=== PATIENT | male | born 1955 | race Two or more races ===

== ENCOUNTER 2016-12-24 16:41 | Inpatient (IN) | payer MEDICARE, OTHER ==
[~2016-12-24] VITALS: Ht 172.7 cm; Wt 100.4 kg
--- NOTE | 2016-12-24 16:45 | NUR ---
BIB PRIVATE EMT FROM [facility],WEAKNESS A,D FAILURE TO THRIVE, NAD NOTED, VSS, PUT ON HOSPITAL GOWN AND MONITOR. WAITING FOR MD ZEPEDA.
[2016-12-24] MEDS ORDERED: IV NS 0.9% 1,000 ML BAG IV ONE (17:30)
[2016-12-24 17:44] LABS: BASOPHILS # (AUTO) 0.1 /CMM (0.0-0.2); BASOPHILS % (AUTO) 0.5 % (0.0-2.0); EOSINOPHILS # (AUTO) 0.6 /CMM (0.0-0.7); EOSINOPHILS % (AUTO) 5.5 % (0.0-6.0); HEMATOCRIT 52 % (39-51); HEMOGLOBIN 17.2 g/dL (13.5-17.5); LYMPHOCYTES # (AUTO) 3.7 /CMM (0.8-4.8); LYMPHOCYTES % (AUTO) 35.5 % (20.0-44.0); MEAN CORPUSCULAR HEMOGLOBIN 28 PG (26.0-33.0); MEAN CORPUSCULAR HGB CONC 33 g/dl (31.0-36.0); MEAN CORPUSCULAR VOLUME 86 fL (80-96); MONOCYTES # (AUTO) 0.8 /CMM (0.1-1.30); NEUTROPHILS # (AUTO) 5.2 /CMM (1.8-8.9); NEUTROPHILS % (AUTO) 50.5 % (43.0-81.0); PLATELET COUNT (AUTO) 186 /CMM (150-450); RED BLOOD CELL COUNT(AUTO) 6.04 MIL/uL (4.5-6.0); WHITE BLOOD COUNT (AUTO) 10.3 K/uL (4.3-11.0)
[2016-12-24] MEDS ORDERED: hydrALAZINE HCL IV 20 MG VIAL ONE (17:48)
[2016-12-24 17:57] LABS: INR 0.91 (0.87-1.13); PROTHROMBIN TIME 9.5 SECS (9.5-12.7)
[2016-12-24 17:59] LABS: CALCIUM, SERUM 8.8 mg/dL (8.5-10.1); CARBON DIOXIDE 25 mmol/L (21-32); CHLORIDE 107 mmol/L (98-107); CREATININE 1.4 mg/dL (0.6-1.3); GLUCOSE 90 mg/dL (74-106); POTASSIUM 4.5 mmol/L (3.5-5.1); SODIUM SERUM 142 mmol/L (136-145); UREA NITROGEN, BLOOD 25 mg/dL (7-18)
[2016-12-24] MEDS ORDERED: hydrALAZINE HCL IV 20 MG VIAL IV ONE (18:00)
[2016-12-24 18:03] LABS: TROPONIN I < 0.017 ng/mL (0.00-0.056)
[2016-12-24 18:05] LABS: ALANINE AMINOTRANSFERASE 18 U/L (12-78); ALBUMIN 3.5 g/dL (3.4-5.0); ALKALINE PHOSPHATASE 97 U/L (46-116); ASPARTATE AMINOTRANSFERASE 23 U/L (15-37); BILIRUBIN,DIRECT 0.1 mg/dL (0.0-0.2); BILIRUBIN,TOTAL 0.6 mg/dL (0.2-1.0); TOTAL PROTEIN, SERUM 8.2 g/dL (6.4-8.2)
[2016-12-24] MEDS ORDERED: ACET-73 PO (18:29)
--- NOTE | 2016-12-24 19:22 | NUR ---
Patient is resting comfortably in bed with eyes closed. Easily aroused. VSS
[2016-12-24] MEDS ORDERED: IV NS 0.9% 1,000 ML IV PRN (19:41)
[2016-12-24] MEDS ORDERED: MAGNESIUM HYDROXIDE 30 ML UDC PO PRN (20:00)
[2016-12-24] MEDS ORDERED: Z GUARD REMEDY 2 OZ OINT TP PRN (20:00)
[2016-12-24] MEDS ORDERED: MAG HYDROX/AL HYDROX/SIMETH 30 ML UDC PO PRN (20:00)
[2016-12-24] MEDS ORDERED: HYDROCODONE/APAP 10/325MG 1 EA TABLET PO PRN (20:00)
[2016-12-24] MEDS ORDERED: ZOLPIDEM TARTRATE 5 MG TABLET PO PRN (20:00)
[2016-12-24] MEDS ORDERED: ONDANSETRON HCL/PF 4 MG/2 ML VIAL IVP PRN (20:00)
[2016-12-24] MEDS ORDERED: HYDROCODONE/APAP 5/325MG 1 EACH TABLET PO PRN (20:00)
[2016-12-24] MEDS ORDERED: ACETAMINOPHEN 325 MG TABLET PO PRN (20:00)
--- NOTE | 2016-12-24 20:10 | NUR ---
REPORT GIVEN TO KIMBERLY
[2016-12-24 20:35] VITALS: BP 154/110
--- NOTE | 2016-12-24 20:35 | NUR ---
MS RN OPENING NOTES: RECEIVED PT FROM ED. PT IS A/OX2-3. PT HAS A BIT OF A DELAY IN HIS SPEECH. PT HAS IV ON R FOREARM AND IS PATENT AND INTACT. CALL LIGHT WITHIN PT'S REACH. PT KEPT CLEAN, DRY, AND COMFORTABLE. BED KEPT IN LOW, LOCKED POSITION, AND SIDE RAILS X 2 UP. NO SOB NOTED. NO S/S OF DISTRESS NOTED AT THIS TIME. PT DENIES ANY PAIN. WILL CONTINUE TO MONITOR PT.
[2016-12-24 21:00] VITALS: BP 149/94
[2016-12-24] MEDS: ENOXAPARIN SODIUM 40 MG/0.4 ML DISP.SYRIN SQ SCH (21:00)
--- NOTE | 2016-12-24 21:20 | NUR ---
MS RN NOTES: SPOKE TO DR. CORCORAN AND INFORMED HIM ABOUT PT'S BP FOR 154/110 HR 106. GOT VERBAL ORDER FOR CLONIDINE 0.1MG PO Q6PRN FOR SBP>160 ; WILL CONTINUE TO MONITOR BP. ALSO INFORMED DOCTOR THAT PT IS REFUSING LOVENOX AFTER RISKS/BENEFITS HAVE BEEN EXPLAINED.
--- NOTE | 2016-12-24 21:25 | NUR ---
MS RN NOTES: PT IS REFUSING LOVENOX AFTER RISKS/BENEFITS HAVE BEEN EXPLAINED X3. PT STILL REFUSES. DR. CORCORAN AWARE. WILL CONTINUE TO MONITOR PT.
[2016-12-24 21:30] VITALS: BP 149/98
[2016-12-24] MEDS ORDERED: CLONIDINE HCL 0.1 MG TABLET PO PRN (21:30)
--- NOTE | 2016-12-24 23:28 | NUR ---
MS RN NOTES: DR. CORCORAN AT BEDSIDE. DR. CORCORAN MADE AWARE THAT PT WISHES TO BE DNR/DNI. DILMA GUY, IS ANOTHER WITNESS.
--- NOTE | 2016-12-25 02:03 | NUR ---
MS RN NOTES: PT WANTED TO BE DISCONNECTED FROM IV FLUIDS. PT IS REFUSING TO BE CONNECTED AT THIS TIME. WILL TRY TO CONNECT HIM BACK AT ANOTHER TIME.
[2016-12-25 06:27] LABS: BASOPHILS # (AUTO) 0.1 /CMM (0.0-0.2); BASOPHILS % (AUTO) 1.1 % (0.0-2.0); EOSINOPHILS # (AUTO) 0.2 /CMM (0.0-0.7); EOSINOPHILS % (AUTO) 1.6 % (0.0-6.0); HEMATOCRIT 50 % (39-51); HEMOGLOBIN 16.6 g/dL (13.5-17.5); LYMPHOCYTES # (AUTO) 3.1 /CMM (0.8-4.8); LYMPHOCYTES % (AUTO) 26.2 % (20.0-44.0); MEAN CORPUSCULAR HEMOGLOBIN 29 PG (26.0-33.0); MEAN CORPUSCULAR HGB CONC 33 g/dl (31.0-36.0); MEAN CORPUSCULAR VOLUME 87 fL (80-96); MONOCYTES # (AUTO) 0.6 /CMM (0.1-1.30); MONOCYTES % (AUTO) 5.2 % (2.0-12.0); NEUTROPHILS # (AUTO) 7.8 /CMM (1.8-8.9); NEUTROPHILS % (AUTO) 65.9 % (43.0-81.0); PLATELET COUNT (AUTO) 187 /CMM (150-450); RDW COEFFICIENT OF VARIATION 14.4 (11.5-15.0); RED BLOOD CELL COUNT(AUTO) 5.83 MIL/uL (4.5-6.0); WHITE BLOOD COUNT (AUTO) 11.8 K/uL (4.3-11.0)
[2016-12-25 06:48] LABS: CALCIUM, SERUM 8.4 mg/dL (8.5-10.1); CREATININE 1.2 mg/dL (0.6-1.3); MAGNESIUM 1.8 mg/dL (1.8-2.4); PHOSPHORUS 3.2 mg/dL (2.5-4.9)
--- NOTE | 2016-12-25 06:57 | NUR ---
MS RN CLOSING NOTES: ALL NEEDS WERE ATTENDED AND ANTICIPATED FOR. PT IS RESTING IN BED COMFORTABLY. PT IS A/OX2-3. PT HAS IV ON R FOREARM AND IS PATENT AND INTACT AND IS BEING INFUSED WITH NS AT 100ML/HR. CALL LIGHT WITHIN PT'S REACH. PT KEPT CLEAN, DRY, AND COMFORTABLE. BED KEPT IN LOW, LOCKED POSITION, AND SIDE RAILS X 2 UP. NO SOB NOTED. NO S/S OF DISTRESS NOTED AT THIS TIME. PT DENIES ANY PAIN. WILL ENDORSE TO AM NURSE FOR OSCAR.
[2016-12-25] MEDS ORDERED: ACETAMINOPHEN ES 500 MG TABLET PO PRN (07:30)
--- NOTE | 2016-12-25 07:56 | NUR ---
MS/RN OPENING NOTE PATIENT RECEIVED IN BED IN STABLE CONDITION. A/O X 2-3. DELAYED RESPONSE TO QUESTIONS. NO SIGNS OF ACUTE DISTRESS. NO COMPLAIN OF PAIN OR DISCOMFORT. ALL NEEDS ATTENDED TO. CALL LIGHT WITHIN REACH. WILL CONTINUE TO MONITOR TO ENSURE SAFETY.
[2016-12-25 08:00] VITALS: BP 156/120
[2016-12-25] MEDS: PANTOPRAZOLE 40 MG TABLET.DR PO SCH (08:37)
[2016-12-25 16:00] VITALS: BP 156/107
--- NOTE | 2016-12-25 16:08 | NUR ---
MS/RN SPOKE WITH JUSTINA Archibald WAREHOUSE TEAM MEMBER SPOKE WITH JUSTINA WHITING AND MADE AWARE REGARDING PATIENT'S REFUSAL OF IV FLUIDS, PER PATIENT, "I WILL DRINK MORE WATER BY MOUTH" JUSTINA WHITING AWARE WITH ORDERS TO CONTINUE OFFERING IV FLUIDS SECONDARY TO PATIENT NEEDS IT FOR HYDRATION.
--- NOTE | 2016-12-25 18:56 | NUR ---
MS/RN CLOSING NOTE PATIENT IN BED IN STABLE CONDITION. A/O X 2-3. DELAYED RESPONSE. NO SIGNS OF ACUTE DISTRESS. NO COMPLAIN OF PAIN OR DISCOMFORT. IV SITE INTACT. REFUSING IV HYDRATION, OFFERED X 3 WITH RISK/ BENEFITS EXPLAINED CONTINUED TO REFUSE. WILL CONTINUE TO OFFER. ALL NEEDS ATTENDED TO. CALL LIGHT WITHIN REACH. WILL ENDORSE TO NEXT SHIFT FOR CONTINUITY OF CARE.
[2016-12-25 20:00] VITALS: BP 164/114
--- NOTE | 2016-12-25 20:00 | NUR ---
MS RN OPENING NOTES RECEIVED PATIENT LAYING IN BED IN SEMI NIELSON POSITION. A & O X 2-3, DELAYED RESPONSE. NO C/O PAIN, NO SOB, NO ACUTE DISTRESS NOTED. ABLE TO MAKE NEEDS KNOWN. IV ACCESS TO RFA, NOTED TO BE INFILTRATED BUT PATIENT REFUSED TO CHANGE THE IV SITE. ALSO REFUSING IV HYDRATION. RISKS & BENEFITS WERE EXPLAINED BUT CONTINUED TO REFUSE. ENCOURAGED TO DRINK FLUIDS TOLERATED, PATIENT VERBALIZED UNDERSTANDING. BED IN LOW LOCKED POSITION. CALL LIGHT WITHIN REACH. OBSERVING CLOSELY.
[2016-12-25] MEDS: ENOXAPARIN SODIUM 40 MG/0.4 ML DISP.SYRIN SQ SCH (21:00)
--- NOTE | 2016-12-25 21:18 | NUR ---
MS RN NOTES PATIENT REFUSED LOVENOX INJECTION, RISKS & BENEFITS WERE EXPLAINED, VERBALIZED UNDERSTANDING BUT STILL REFUSED THE LOVENOX.
[2016-12-25 22:00] VITALS: BP 150/98
[2016-12-25 23:49] VITALS: BP 159/104
--- NOTE | 2016-12-25 23:50 | NUR ---
RN NOTES: RECHECK PT'S VS, REVEAL 159/104 HR 70 RR 20 98.3 PT DENIES ANY PAIN OR DISCOMFORT, PT REFUSING ANY BP MEDICATION, WILL RELAY TO
--- NOTE | 2016-12-25 23:52 | NUR ---
RN NOTES: POULTRY HATCHERY LABORERTAMARA LANDIS TALKED TO THE PT, PER PT HE DOESNT WANT TO TAKE ANY BP MEDS AT THIS TIME HE BELIEVE HIS BP WILL GO BACK TO NORMAL IN NO TIME, AND TO RECHECK AGAIN BP AT 0400AM, PT STATED IF STILL HIGH, THEN HE WILL AGREE TO TAKE THE MEDICINE,
--- NOTE | 2016-12-25 23:55 | NUR ---
RN NOTES: MD HYDROPULPER IN THE UNIT, DR CORCORAN, RELAYED ABOUT PT BP AND BEING NON COMPLIANT, ALSO RELAYED THAT PER PT HE DOESNT WANT TO TAKE ANY MEDICATION AT THIS TIME, HE BELIEVE IT WILL GO BACK TO NORMAL IN NO TIME, AND THAT TO RECHECK AGAIN BP AT 0400AM, IF IT STILL HIGH THEN HE WILL AGREE TO TAKE THE MEDICINE, EDUCATION PROVIDED TO THE PT, CHILD DEVELOPMENT SPECIALISTTAMARA LANDIS AWARE, NO NEW ORDERS FROM MD AT THIS TIME, WILL CONTINUE MONITORING PT
--- NOTE | 2016-12-26 07:10 | NUR ---
RN OPENING NOTES RECEIVED PATIENT IN BED AWAKE, A/O X 3, ABLE TO COMMUNICATE NEEDS. NO ACUTE DISTRESS, NO SOB NOTED. DENIES PAIN AND DISCOMFORT AT THIS TIME. ASKED THE PATIENT THAT IV SITE NEEDS TO BE DISCONTINUED DUE TO INFILTRATION, PATIENT AGREED TO D/C IV SITE, NIGHT RN D/C IV SITE, NO COMPLICATIONS NOTED. BED IN LOW POSITION, LOCKED, SIDERAILS UP X2, CALL LIGHT IN REACH, WILL CONTINUE TO MONITOR ACCORDINGLY.
[2016-12-26] MEDS: PANTOPRAZOLE 40 MG TABLET.DR PO SCH (07:30)
--- NOTE | 2016-12-26 07:30 | NUR ---
RN NOTES PATIENT REFUSED TO REINSERT IV, EDUCATE/TEACHING WAS DONE BUT STILL REFUSED. WILL NOTIFY
[2016-12-26 08:00] VITALS: BP 152/96
--- NOTE | 2016-12-26 09:00 | NUR ---
RN NOTES PATIENT REFUSED AM MEDICATIONS, TEACHING WAS DONE BUT STILL REFUSED TO TAKE IT. WILL CONTINUE TO MONITOR ACCORDINGLY
--- NOTE | 2016-12-26 10:21 | NUR ---
WOUND CARE CONSULT: PT PRESENTS WITH INCONTINENCE AND SACRAL SCARRING. PT SCRATCHES HIMSELF AT TIMES. ALL SKIN PROTECTION MEASURES IN PLACE. PT ABLE TO ASSIST WITH TURNING AND REPOSITIONING IN BED. WILL SEE LISA. DISCUSSED SKIN PROTECTION WITH NURSING STAFF. WILL SEE LISA. IN AGREEMENT WITH PLAN OF CARE. Addendum: 12/26/16 at 1022 by DREW LLANOS WNDNU Amended: Links added.
[2016-12-26 10:35] LABS: CALCIUM, SERUM 8.7 mg/dL (8.5-10.1); CREATININE 1.5 mg/dL (0.6-1.3); POTASSIUM 4.5 mmol/L (3.5-5.1)
[2016-12-26 11:10] LABS: RED BLOOD CELL COUNT(AUTO) 5.64 MIL/uL (4.5-6.0); WHITE BLOOD COUNT (AUTO) 10.6 K/uL (4.3-11.0)
[2016-12-26 11:11] LABS: HEMATOCRIT 49 % (39-51); HEMOGLOBIN 16.3 g/dL (13.5-17.5); LYMPHOCYTES % (AUTO) 33.9 % (20.0-44.0); MEAN CORPUSCULAR HEMOGLOBIN 29 PG (26.0-33.0); MEAN CORPUSCULAR HGB CONC 33 g/dl (31.0-36.0); MEAN CORPUSCULAR VOLUME 87 fL (80-96); MONOCYTES % (AUTO) 9.7 % (2.0-12.0); NEUTROPHILS % (AUTO) 51.2 % (43.0-81.0); PLATELET COUNT (AUTO) 185 /CMM (150-450); RDW COEFFICIENT OF VARIATION 14.3 (11.5-15.0)
[2016-12-26 11:12] LABS: BASOPHILS % (AUTO) 0.3 % (0.0-2.0); EOSINOPHILS % (AUTO) 4.9 % (0.0-6.0)
[2016-12-26 16:00] VITALS: BP 159/98
--- NOTE | 2016-12-26 16:15 | NUR ---
RN NOTES PATIENT NK=[id number], REFUSED BP MEDICATIONS. PATIENT STATED "I DONT WANT IT! ITS NORMAL FOR ME!". EDUCATE/TEACHING ABOUT BP MEDS WAS DONE BUT PATIENT STILL REFUSED. WILL CONTINUE TO MONITOR ACCORDINGLY.
--- NOTE | 2016-12-26 17:00 | NUR ---
RN NOTES JUSTINA DE LEON,SCHOOL LIBRARY MEDIA PROGRAM DIRECTOR ON BEDSIDE, NOTIFIED ABOUT PATIENT BEEN REFUSING TO HAVE IV INSERTION. SCHOOL LIBRARY MEDIA PROGRAM DIRECTOR ALSO NOTIFIED ABOUT PATIENT REFUSING MEDICATIONS. WILL CONTINUE TO MONITOR ACCORDINGLY.
--- NOTE | 2016-12-26 19:29 | NUR ---
RN CLOSING NOTES NO CHANGE OF CONDITION. NO ACUTE DISTRESS, NO SOB NOTED. ALL NEEDS ATTENDED AND PROVIDED. KEPT PATIENT SAFE AND COMFORTABLE. BED IN LOW POSITION, LOCKED, SIDERAILS UP X2. CALL LIGHT WITHIN REACH. ENDORSED TO NIGHT RN FOR OSCAR.
[2016-12-26 20:00] VITALS: BP 167/112
--- NOTE | 2016-12-26 20:00 | NUR ---
MS RN OPENING NOTES RECEIVED PATIENT RESTING IN BED, AWAKE. A & O X 2-3, ABLE TO VERBALIZE HIS NEEDS. NO C/O PAIN, NO SOB, NO CHANGE OF CONDITION NOTED. HAS NO IV ACCESS DUE TO PT'S REFUSAL FOR IV HYDRATION. MD AWARE. ENCOURAGED TO DRINK TOLERATED. ABLE TO TURN & REPOSITION IN BED INDEPENDENTLY. BED IN LOW LOCKED POSITION. CALL LIGHT WITHIN REACH. WILL CONTINUE TO MONITOR.
[2016-12-26 21:00] VITALS: BP 152/99
[2016-12-26] MEDS: ENOXAPARIN SODIUM 40 MG/0.4 ML DISP.SYRIN SQ SCH (21:00)
--- NOTE | 2016-12-26 21:40 | NUR ---
REFUSED LOVENOX PATIENT REFUSED LOVENOX INJECTION ORDERED BY . PT STATES, ' I DONT WANT IT '. RISKS & BENEFITS EXPLAINED BUT CONTINUED TO REFUSE. AWARE.
--- NOTE | 2016-12-27 03:00 | NUR ---
MS RN NOTES PATIENT SLEEPING COMFORTABLY AT THIS TIME. NO OSCAR NOTED. PATIENT CHECK ROUNDING BEING DONE PER FACILITY PROTOCOL.
--- NOTE | 2016-12-27 05:43 | NUR ---
refusal for blood draw: agricultural labor camp manager came stated pt refusing blood draw, talked to the pt, education provided, but pt still refused
--- NOTE | 2016-12-27 06:27 | NUR ---
MS RN CLOSING NOTES PATIENT SLEPT WELL AT NIGHT. A & O X 2-3, DELAYED RESPONSE. NO C/O PAIN, NO SOB, NO ACUTE DISTRESS OR DISCOMFORT NOTED. REFUSES TO HAV IV ACCESS AT ALL, MD AWARE. TAKES PO INTAKE & FLUIDS TOLERATED. BED IN LOW LOCKED POSITION. ALL NEEDS ATTENDED TO & MET. ON CALORIE COUNT DIET. CALL LIGHT WITHIN REACH. POSSIBLE D/C TO [facility] TODAY PER CM NOTES. WILL ENDORSE TO AM SHIFT RN.
[2016-12-27] MEDS: PANTOPRAZOLE 40 MG TABLET.DR PO SCH (07:30)
--- NOTE | 2016-12-27 07:30 | NUR ---
RN OPENING NOTES RECEIVED PATIENT IN BED AWAKE, A/O X 3, ABLE TO COMMUNICATE NEEDS. NO ACUTE DISTRESS, NO SOB NOTED. DENIES PAIN AND DISCOMFORT AT THIS TIME. STILL REFUSED TO HAVE IV INSERTED, WILL NOTIFY MD. ON CALORIE COUNT DIET. KEPT PATIENT SAFE AND COMFORTABLE. BED IN LOW POSITION, LOCKED, SIDERAILS UP X2, CALL LIGHT IN REACH, WILL CONTINUE TO MONITOR ACCORDINGLY.
[2016-12-27 08:00] VITALS: BP 151/87
[2016-12-27 09:43] VITALS: BP 151/87
[2016-12-27 10:37] LABS: CALCIUM, SERUM 8.6 mg/dL (8.5-10.1); CREATININE 1.6 mg/dL (0.6-1.3); POTASSIUM 3.5 mmol/L (3.5-5.1)
[2016-12-27 16:00] VITALS: BP 150/99
[2016-12-27 16:01] VITALS: BP 145/105
[2016-12-27 16:11] LABS: APPEARANCE,URINE SL CLOUDY (CLEAR); BILIRUBIN,URINE NEGATIVE (NEGATIVE); BLOOD, URINE 3+ Ery/uL (NEGATIVE); COLOR,URINE YELLOW (YELLOW); KETONES,URINE NEGATIVE (NEGATIVE); LEUKOCYTE ESTERASE ,URINE 3+ (NEGATIVE); NITRITE, URINE POSITIVE (NEGATIVE); PROTEIN,URINE 1+ mg/dl (NEGATIVE); UGLUCOSE NEGATIVE (NEGATIVE)
[2016-12-27 16:16] LABS: SQUAMOUS EPITHELIAL CELL,UR Few /HPF (None Seen); WBC,URINE TOO NUMEROUS TO COUN /HPF (0-3)
[2016-12-27 16:17] LABS: BACTERIA,URINE Moderate /HPF (None Seen)
[2016-12-27 16:39] LABS: EOSINOPHIL,URINE Moderate
[2016-12-27 16:57] LABS: CREATININE, URINE 142.6 MG/DL (30.0-125.0)
--- NOTE | 2016-12-27 18:00 | NUR ---
RN NOTES PATIENT SCRATCH HIS RIGHT BUTTOCKS, CLEANSE WITH NS, COVERED WITH MEPILEX, PHOTO TAKEN, WILL CONTINUE TO MONITOR ACCORDINGLY.
--- NOTE | 2016-12-27 19:35 | NUR ---
RN OPENING NOTES RECEIVED REPORT FROM INDIRA BRUNSON RN. FOUND Pt AWAKE, RESTING IN BED, WATCHING TV. Pt IS A/OX2-3, VERBAL, ABLE TO MAKE NEEDS KNOWN. NO S/S OF ACUTE DISTRESS OR SOB NOTED. NO C/O PAIN AT THIS TIME. NO IV ACCESS. Pt REFUSING. POSSIBLE D/C TOMORROW TO [facility]. WAS TOLD THAT Pt's BELONGINGS ARE STILL AT [facility] WHERE Pt PREVIOUSLY LIVED, BUT WILL BE GOING TO [facility] ONCE DISCHARGED. WILL TRY TO CONTACT FAMILY AND INFORM THEM OF THE SITUATION. SAFETY MEASURES IN PLACE. BED LOW, LOCKED, HOB ELEVATED, SIDE RAILS UP, CALL LIGHT AND BEDSIDE TABLE WITHIN REACH. WILL CONTINUE TO MONITOR Pt THROUGHOUT THE NIGHT FOR SAFETY.
[2016-12-27 20:00] VITALS: BP_SYST 165; BP_SYST 171; BP_DIAS 109; BP_DIAS 110
--- NOTE | 2016-12-27 20:00 | NUR ---
RN NOTES SPOKE WITH SISTER (D[place]GO) ON THE PHONE. INFORMED HER THAT THE Pt WILL BE TRANSFERRING TO [facility] UPON DISCHARGE POSSIBLY TOMORROW, BUT HIS BELONGINGS ARE BACK IN [facility] AT HIS PREVIOUS SNF. SISTER SAID THAT SHE CAN GO CREATIVE ENGAGEMENT DIRECTOR HIS BELONGINGS AT [facility] AND BRING IT TO HIM ONCE HE IS DISCHARGED AND TAKEN TO [facility].
[2016-12-27] MEDS: ENOXAPARIN SODIUM 40 MG/0.4 ML DISP.SYRIN SQ SCH (21:00)
--- NOTE | 2016-12-27 22:00 | NUR ---
RN NOTES RECHECKED BP. CURRENT BP IS 165/110. ASKED Pt IF HE WANTED HIS PRN CATAPRES 0.1MG TO HELP LOWER HIS BP. BUT Pt REFUSED AND STATED THAT HIS BP GOES DOWN WHEN HE SLEEPS.
--- NOTE | 2016-12-28 06:35 | NUR ---
RN CLOSING NOTES Pt REMAINS IN STABLE CONDITION. NO SIGNIFICANT CHANGES NOTED DURING THE NIGHT. NO S/S OF ACUTE DISTRESS OR SOB NOTED DURING THE SHIFT. ALL NEEDS MET AND ATTENDED TO. SAFETY MEASURES IN PLACE. WILL ENDORSE TO DAYSHIFT RN FOR Pt's OSCAR.
--- NOTE | 2016-12-28 07:16 | NUR ---
MS/RN OPENING NOTES RECEIVED PT AWAKE IN BED IN NO ACUTE SIGNS OF DISTRESS. A/O X2-3, VERBALLY RESPONSIVE WITH NO C/O PAIN OR DISCOMFORTS AT THIS TIME. ON ROOM AIR, BREATHING EVEN AND UNLABORED. NO IV ACCESS NOTED PT REFUSING TO HAVE. ALL SAFETY MEASURES IN PLACE. BED LOW AND LOCKED WITH SIDE RAILS UP X2. CALL LIGHT WITHIN REACH OF PT. WILL CONTINUE TO MONITOR PT ACCORDINGLY.
[2016-12-28] MEDS: PANTOPRAZOLE 40 MG TABLET.DR PO SCH (07:30)
[2016-12-28 08:00] VITALS: BP 165/82
--- NOTE | 2016-12-28 08:21 | NUR ---
RN NOTES PATIENT NOTED WITH BP OF 165/82 MMHG, ENCOURAGED TO TAKE PRN CATAPRES 0.1MG TAB BUT REFUSED. WILL CONTINUE TO MONITOR
[2016-12-28 11:11] LABS: CREATININE 1.4 mg/dL (0.6-1.3); POTASSIUM 3.9 mmol/L (3.5-5.1)
[2016-12-28 11:21] LABS: CALCIUM, SERUM 8.7 mg/dL (8.5-10.1)
[2016-12-28] MEDS ORDERED: ENOX40DI SQ (11:44)
[2016-12-28] MEDS ORDERED: PANT40TA2 PO (11:44)
[2016-12-28] MEDS ORDERED: CLON0.1T14 PO (11:44)
--- NOTE | 2016-12-28 14:33 | NUR ---
RN NOTES PATIENT SEEN BY DR FELTON TODAY WITH ORDER TO DISCHARGE PT. PATIENT WILL BE DISCHARGED TO [facility], REPORT GIVEN TO DILMA OSORIO CHARGE NURSE. PT AWARE OF DISCHARGE AND VERBALIZED UNDERSTANDING.
[2016-12-28 16:02] VITALS: BP 160/113
--- NOTE | 2016-12-28 16:17 | NUR ---
RN NOTES PATIENT NOTED WITH BP OF 160/113MMHG, PT DIDN'T WANT TO TAKE PRN CLONIDINE 0.1 MG AND STATED THAT HE WILL TAKE IT IN SNF ONLY. EXPLAINED TO PT THAT [employer] EMT'S WON'T TAKE HIM TO [facility] IF BP WON'T GO DOWN. PT THEN TOOK THE CLONIDINE AND COUNSELED TO BE COMPLIANT IN TAKING HIS MEDS AND VERBALIZED UNDERSTANDING. CALLED CHARGE NURSE JO OF [facility] AND EXPLAINED THAT PT'S BP WAS HIGH AND GAVE TREND OF PT'S BP THAT IT'SALWAYS HIGH AND PT NON-COMPLIANT WITH HIS MEDS. I TOLD HIM I GAVE CLONIDINE 0.1MG PO. HE SAID THAT IS OK. INFORMED [facility] CREW THAT I SPOKE WITH JO AND IT'S OK TO TRANSFER PT TO THEIR FACILITY. CHARGE NURSE CHON MADE AWARE.
--- NOTE | 2016-12-28 16:49 | NUR ---
RN DISCHARGED NOTES PT DISCHARGED TO [facility] IN STABLE CONDITION. A/O X 3 AND VERBALLY RESPONSIVE, STATED THAT HE WILL TAKE HIS BP MED IN SNF IF STILL ELEVATED. LATEST BP IS 160/109MMHG, NO C/O PAIN, HEADACHE OR N & V. NO SIGNS OF DISTRESS NOTED DURING DISCHARGE. PT EAGERLY WANTED TO LEAVE THE UNIT DESPITE WITH ELEVATED BP, EMT CREWS AND CHARGE NURSE AWARE. PT LEFT UNIT VIA GURNEY AT [id number] ACCOMPANIED BY 2 SOLUTIONS MANAGER FROM "[employer]" TRANSPORT [employer]. V/S TAKEN AND RECORDED. PHOTOS OF SKIN TAKEN AND FILED ON CHART. REFUSED FLU AND PNA VACCINES DESPITE ENCOURAGEMENT. HEALTH TEACHINGS GIVEN ESPECIALLY IN TAKING HIS PRESCRIBED MEDS AND VERBALIZED UNDERSTANDING. MD AND CHARGE NURSE AWARE OF DISCHARGE.
== END 2016-12-28 17:09 | DRG 684 ==
LOC: ER 16:46 → MED 20:11
PROVIDERS: ADMIT Internal Medicine; ATTEND Internal Medicine
DX: N17.0 Acute kidney failure with tubular necrosis (principal); G62.9 Polyneuropathy, unspecified; D72.829 Elevated white blood cell count, unspecified; E78.5 Hyperlipidemia, unspecified; N18.9 Chronic kidney disease, unspecified; R62.7 Adult failure to thrive; Z66 Do not resuscitate; I25.10 Atherosclerotic heart disease of native coronary artery without angina pectoris; K21.9 Gastro-esophageal reflux disease without esophagitis; N40.0 Benign prostatic hyperplasia without lower urinary tract symptoms; Z68.33 Body mass index [BMI] 33.0-33.9, adult; R03.0 Elevated blood-pressure reading, without diagnosis of hypertension
CPT/HCPCS: 36415; 70450-TC; 71010-TC; 80048-TC; 80076-TC; 81000-TC; 82550-TC; 82570-TC; 83735-TC; 84100-TC; 84155-TC; 84300-TC; 84484-TC; 85025-TC; 85730-TC; 87081-TC; 87086-TC; 87186-TC; A4606; J0360; J1650; J7030; Z7610